=== PATIENT | male | born 1995 | race African-American/Black ===

== ENCOUNTER 2018-05-08 14:35 | Emergency (ER) | payer SELFPAY ==
[2018-05-08] MEDS ORDERED: ONDANSETRON 4 MG TAB.RAPDIS PO ONE (15:03)
[2018-05-08] MEDS ORDERED: IBUPROFEN 600 MG TABLET PO ONE (15:03)
--- NOTE | 2018-05-08 15:10 | ER Document Report ---
ED Medical Screen (RME) - General Chief Complaint: Flu Symptoms Stated Complaint: VOMITING Time Seen by Provider: 05/08/18 14:50 TRAVEL OUTSIDE OF THE [place] IN LAST 30 DAYS: No - HPI Patient complains to provider of: Vomiting x1 Onset: Other - This 22-year-old otherwise healthy man presents for evaluation of an episode of emesis last night as well as some nausea and low-grade fever today. He did take 2 ibuprofen this morning to try and help with his symptoms. Otherwise nothing is made his symptoms any better or worse. Is never anything like this in the past, is otherwise healthy, does smoke cigarettes. Denies diarrhea constipation or other symptoms. - Related Data Allergies/Adverse Reactions: No Known Allergies Allergy (Verified 05/08/18 14:37) Past Medical History - General Information source: Patient - Social History Cigarette use (# per day): Yes Chew tobacco use (# tins/day): No Frequency of alcohol use: Occasional Drug Abuse: None Renal/ Medical History: Denies: Hx Peritoneal Dialysis Review of Systems - Review of Systems -: Yes All other systems reviewed and negative Physical Exam - Vital signs Vitals: Temp Pulse Resp BP Pulse Ox 99.0 F 108 H 18 128/81 H 97 05/08/18 14:42 05/08/18 14:42 05/08/18 14:42 05/08/18 14:42 05/08/18 14:42 Interpretation: Tachycardic - General General appearance: Appears well, Alert - HEENT Head: Normocephalic, Atraumatic Eyes: Normal Pupils: PERRL - Respiratory Respiratory status: No respiratory distress Chest status: Nontender Breath sounds: Normal Chest palpation: Normal - Cardiovascular Rhythm: Regular Heart sounds: Normal auscultation Murmur: No - Abdominal Inspection: Normal Distension: No distension Bowel sounds: Normal Tenderness: Nontender Organomegaly: No organomegaly - Back Back: Normal, Nontender - Extremities General upper extremity: Normal inspection, Nontender, Normal color, Normal ROM, Normal temperature General lower extremity: Normal inspection, Nontender, Normal color, Normal ROM, Normal temperature, Normal weight bearing. No: Priyanka's sign - Neurological Neuro grossly intact: Yes Cognition: Normal Orientation: AAOx4 [place] Coma Scale Eye Opening: Spontaneous [place] Coma Scale Verbal: Oriented [place] Coma Scale Motor: Obeys Commands Nidia Coma Scale Total: 15 Speech: Normal Motor strength normal: LUE, RUE, LLE, RLE Sensory: Normal - Psychological Associated symptoms: Normal affect, Normal mood - Skin Skin Temperature: Warm Skin Moisture: Dry Skin Color: Normal Course - Re-evaluation Re-evalutation: 05/08/18 20:48 Healthy 22-year-old man who presents for flulike symptoms with one episode of emesis last night. He has benign abdominal examination and reassuring vital signs save his tachycardia which I think is related likely to his low-grade fever. He was given an antiemetic in the emergency department as well as Tylenol. Thereafter he is able to tolerate p.o. His abdominal examination remained benign. His work of breathing on room air was comfortable, I do not believe this represents a more serious underlying cause of his symptoms such as but not limited to pneumonia, bacteremia, sepsis. He was discharged with return precautions and expectant management. He was also encouraged to stop smoking smoking cessation counseling was given to him. - Vital Signs Vital signs: Temp Pulse Resp BP Pulse Ox 98.7 F 94 16 120/78 99 05/08/18 16:14 05/08/18 16:14 05/08/18 16:14 05/08/18 16:14 05/08/18 16:14 Doctor's Discharge - Discharge Clinical Impression: Flu-like symptoms Condition: Good Disposition: HOME, SELF-CARE Instructions: Acetaminophen, Influenza (PENDING SALE TO [facility]) 8022-5070 Additional Instructions: You were seen today in the emergency department for your flulike symptoms. You had evaluation including a physical exam. You should use Motrin and Tylenol to help with your fevers. You have been given a prescription to use as needed for nausea. Return in case you have worsening fevers or chills or cannot eat or drink anything. Schedule point with your primary doctor this week. Prescriptions: Ondansetron [Zofran Odt 4 mg Tablet] 1 - 2 tab PO Q4H PRN #15 tab.rapdis PRN Reason: For Nausea/Vomiting Forms: Smoking Cessation Education
[2018-05-08 16:15] VITALS: BP 120/78
== END 2018-05-08 16:14 | disposition home or self-care (01) ==
LOC: ER 14:35
DX: R11.2 Nausea with vomiting, unspecified (principal); R50.9 Fever, unspecified; F17.210 Nicotine dependence, cigarettes, uncomplicated; R00.0 Tachycardia, unspecified
CPT/HCPCS: 99283; S0119